=== PATIENT | male | born 1985 | race Caucasian/White ===

== ENCOUNTER 2016-08-19 07:40 | Emergency (ER) | payer SELFPAY ==
[~2016-08-19] VITALS: Ht 165.1 cm; Wt 66.3 kg
[2016-08-19 07:44] VITALS: BP 142/79; PULSE 88; TEMP 37.2; O2SAT 99; Ht 165.1 cm; Wt 66.3 kg
--- NOTE | 2016-08-19 09:39 | EMERGENCY ROOM VISIT NOTE ---
History Report prepared by Krisibcamilla: Fela Amaral Under the Supervision of: Dr. Keyanna Lombardi M.D. First contact with patient: 09:19 Chief Complaint: LEG PAIN,LEG INJURY Stated Complaint: LEFT LEG PAIN History of Present Illness The patient is a 31 year old male who presents to the Emergency Room with complaints of worsening lower left leg swelling and redness over the past couple of days. He also complains of a subjective fever. He denies any bites to the area. He denies any injury to the leg. He does admit to picking at an ingrown hair on his left mackey recently. His discomfort is a 10/10 in severity. Source of History: patient Onset: a couple days ago Position: knee (left) Symptom Intensity: 1010 Timing: worsening Associated Symptoms: + fevers (subjective) Review of Systems See HPI for pertinent positives & negatives. A total of 10 systems reviewed and were otherwise negative. Past Medical & Surgical Medical Problems: (1) No Known Active Medical Problems Family History Hypertension Social History Smoking Status: Current Every Day Smoker Alcohol Use: none Housing Status: lives with family Occupation Status: employed Current/Historical Medications No Active Prescriptions or Reported Meds Allergies Coded Allergies: No Known Allergies (Unverified Allergy, Mild, 08/15/05) Physical Exam Vital Signs Date Time Temp Pulse Resp B/P Pulse Ox O2 Delivery O2 Flow Rate FiO2 08/19/16 07:44 37.2 88 18 142/79 99 Room Air Physical Exam Vital signs reviewed. General: Well-appearing 31 year old male, in no significant distress. HEENT: No scleral icterus, PERRLA, neck supple. Atraumatic. Cardiovascular: Regular rate and rhythm, no extra sounds. Pulmonary: Clear to auscultation bilaterally, normal work of breathing. Abdomen: Soft, nontender, nondistended, positive bowel sounds. Musculoskeletal: Markedly erythematous left lateral calf with central area of induration and a small scab, no palpable fluctuance, no lymphangitic streaking. Neurologic: Patient awake alert and oriented x 3 Skin: Warm, dry, no rash Medical Decision & Procedures ED Course 09: The patient was evaluated in room B12B. A complete history and physical examination was performed. The patient was advised of need for blood work, ultrasound, and antibiotics; however, he eloped immediately after my evaluation prior to treatment. Medical Decision Differential diagnosis: Etiologies such as cellulitis, abscess, MRSA infection, DVT, necrotizing fasciitis, dermatitis, drug eruption, as well as others were entertained. This patient was evaluated and appeared to be in no significant distress. Left lower extremities evaluated and significant for a cellulitis. There is a central area that is concerning for a small abscess. I discussed the plan with the patient including blood work, antibiotics and an ultrasound. He did seem to be comfortable with the plan. Upon leaving the room, the patient left without notice. Attempts by nursing staff were made to contact the patient without success. Impression Primary Impression: Cellulitis of leg, left Scribe Attestation The scribe's documentation has been prepared under my direction and personally reviewed by me in its entirety. I confirm that the note above accurately reflects all work, treatment, procedures, and medical decision making performed by me. Departure Information Dispostion Other (Eloped from ED) Prescriptions No Active Prescriptions or Reported Meds Referrals No Doctor, Assigned (PCP) Patient Instructions My [facility]
== END 2016-08-19 09:53 | disposition left against medical advice (07) ==
LOC: C.EDB 07:42
DX: L03.116 Cellulitis of left lower limb (principal); F17.200 Nicotine dependence, unspecified, uncomplicated; Z82.49 Family history of ischemic heart disease and other diseases of the circulatory system

== ENCOUNTER 2017-01-06 19:51 | Emergency (ER) | payer SELFPAY ==
[~2017-01-06] VITALS: Ht 165.1 cm; Wt 69.8 kg
[2017-01-06 19:54] VITALS: TEMP 36.6; Ht 165.1 cm; Wt 69.8 kg
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
[2017-01-06] MEDS ORDERED: ONDANSETRON INJ 2 MG/ML 2 ML VIAL IV STA (20:08)
[2017-01-06] MEDS ORDERED: MoRPHine SULFATE 2 MG/ML CARP IV STA (20:08)
[2017-01-06] MEDS ORDERED: DIPHTHERIA/TETANUS/PERTUSSIS 0.5 ML SYR/VIAL IM. ONE (20:15)
[2017-01-06 20:33] LABS: BASO % 0.2 %; BASO ABS # 0.03 K/uL (0-0.2); COMPLETE YES; EOS % 0.1 %; HEMATOCRIT 43.7 % (42-52); IG% 0.3 %; LYMPH % 6.4 %; LYMPH ABS # 1.03 K/uL (1.2-3.4); MEAN CELL VOLUME 90.7 fL (80-100); MEAN CORPUSCULAR HEMOGLOBIN 31.3 pg (25-34); MEAN CORPUSCULAR HGB CONC 34.6 g/dl (32-36); MEAN PLATELET VOLUME 9.7 fL (7.4-10.4); MONO % 5.1 %; NEUT % 87.9 %; PLATELET COUNT 231 K/uL (130-400); RED BLOOD COUNT 4.82 M/uL (4.7-6.1); WHITE BLOOD COUNT 15.98 K/uL (4.8-10.8)
[2017-01-06 20:53] LABS: BUN/CREATININE RATIO 11.8 (10-20); CALCIUM 9.2 mg/dl (8.5-10.1); CREATININE 1.2 mg/dl (0.60-1.40); POTASSIUM 3.6 mmol/L (3.5-5.1)
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
[2017-01-06] MEDS ORDERED: AMPICILLIN/SULBACTAM SOD INJ 3,000 MG in SODIUM CHLORIDE 0.9% 100ML 100 ML IV ONE (21:00)
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
[2017-01-06 22:15] VITALS: BP 125/69; PULSE 57; O2SAT 99
== END 2017-01-06 22:10 | disposition short-term general hospital (02) ==
LOC: C.EDB 19:52
DX: S01.111A Laceration without foreign body of right eyelid and periocular area, initial encounter (principal); S02.91XA Unspecified fracture of skull, initial encounter for closed fracture; S02.92XA Unspecified fracture of facial bones, initial encounter for closed fracture; V88.7XXA Person injured in collision between other specified motor vehicle, nontraffic, initial encounter; Z23 Encounter for immunization

== ENCOUNTER 2017-10-08 20:23 | Emergency (ER) | payer SELFPAY ==
[~2017-10-08] VITALS: Ht 165.1 cm; Wt 67.0 kg
[2017-10-08 20:25] VITALS: BP 120/71; PULSE 73; TEMP 36.8; O2SAT 97; Ht 165.1 cm; Wt 67.0 kg
[2017-10-08] MEDS ORDERED: PROPARACAINE HCL 0.5% OP SOLN 15 ML BTL OP STA (20:51)
[2017-10-08] MEDS ORDERED: CIPROFLOXACIN HCL 0.3% OP SOLN 2.5 ML BTL OP ONE (21:00)
[2017-10-08] MEDS ORDERED: MULT-600 PO (21:09)
--- NOTE | 2017-10-08 21:20 | EMERGENCY ROOM VISIT NOTE ---
ED Visit Note First contact with patient: 20:38 CHIEF COMPLAINT: Eye pain HISTORY OF PRESENT ILLNESS: This patient is a 32-year-old male presents to the emergency department with complaints of a foreign body in his right eye for the last 3 days. 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 He does not wear contacts. He does not wear glasses. He denies any significant changes in vision.. Tetanus shot is up to date. REVIEW OF SYSTEMS: A 6 system review of systems was completed with positives and pertinent negatives listed in the HPI. ALLERGIES: No known drug allergies MEDICATIONS: Reviewed PMH: Otherwise healthy SOCIAL HISTORY: Denies tobacco or EtOH use PHYSICAL EXAM: Vital Signs: Reviewed Nurse's notes, vital signs stable. A slit- lamp exam was performed. Visual acuity please see nurse's notes. GENERAL: This is a 32-year-old male, in no acute distress, but who is uncomfortable from the eye problem. Well-developed well-nourished. EYES: The pupils are equal round and reactive to light and accommodation. EOMs are full and without tenderness. There is discharge of clear tears from the right eye which is injected. There is a rust ring approximately 2 mm in diameter over the cornea. Anterior chamber is clear.. No foreign body was seen embedded in the cornea under slit lamp exam. EMERGENCY DEPARTMENT COURSE: I examined the patient. Alcaine 2 drops were placed in the patient's right eye. A slit lamp exam was performed as above. Ciloxan two drops was placed in the patient's right eye. The patient was discharged home in good condition. DIAGNOSIS: Metal foreign body right eye DISCHARGE INSTRUCTIONS AND TREATMENT: Use Ciloxin two drops in right eye every two hours while awake for two days; then two drops every four hours while awake for five days. Ibuprofen 600 mg every 6 hours Cayey 1-2 tabs every 4 hours for severe pain. Do not drink alcohol or drive while taking this medication. This may be taken with ibuprofen, but avoid Tylenol. Please follow-up with the cleaning manager. Call Tuesday morning for a follow-up appointment.
[2017-10-08] MEDS ORDERED: HYDR-5688 PO (21:23)
== END 2017-10-08 21:30 | disposition home or self-care (01) ==
LOC: C.EDB 20:23 → C.EDD 21:30
DX: T15.01XA Foreign body in cornea, right eye, initial encounter (principal); X58.XXXA Exposure to other specified factors, initial encounter; Y93.89 Activity, other specified